=== PATIENT | male | born 1955 | race Caucasian/White ===

== ENCOUNTER 2023-06-08 11:23 | Outpatient (AMB) | payer MEDICARE, SELFPAY ==
--- NOTE | 2023-06-08 11:24 | A.OFFVIS_ITS ---
Intake Vital Signs 06/08/23 11:30 Height 5 ft 11 in Weight 192 lb BMI 26.8 BP 118/71 Blood Pressure Location Rt brachial Position Sitting Pulse 73 Intake Visit Reasons: Cruz temporal region swelling Intake Note: This patient presents for an assessment for bilateral temporal artery swelling. Patient c/o; reports bilateral temporal region swelling, reports ring finger on the left hand turns white and cold, reports debilitating headaches. Integrity Analyst Required: No Accompanied by: Other Relationship Allergies hazelnut Allergy (Severe, Verified 06/08/23 11:32) Unknown latex Allergy (Verified 06/08/23 11:32) Unknown Medication List - Last Reconciled 06/08/23 by José Manuel Willis MD amitriptyline 10 mg PO BEDTIME betamethasone valerate 0.1% 1 appl topical BID bupropion HCl 150 mg PO QAM doxycycline monohydrate 100 mg PO BID famotidine 20 mg PO BID fexofenadine 180 mg PO DAILY fluticasone propionate 50 mcg/actuation sprays intranasal hydroxyzine HCl 10 mg PO TID ibuprofen 800 mg PO TID lithium carbonate 300 mg PO BID lithium carbonate ER 300 mg PO BID oxcarbazepine mg PO prednisone 20 mg PO BID prednisone mg PO sumatriptan succinate 50 mg PO sumatriptan succinate mg subcut triamcinolone acetonide 0.1% 1 appl topical BID-TID triamcinolone acetonide 0.5% 1 appl topical BID HPI Cruz temporal region swelling HPI Details 67-year-old male referred for swelling on both temporal areas. He went to the ER about a week ago because both his temporal areas were swollen . He denied any redness. He says he was given prednisone and the swelling has resolved. He denies any new temporal headaches. He says he has had headaches all his life he has a history of a brain tumor. Currently, he says that he has no swelling on his temporal areas. [facility] Medical History (Updated 06/08/23 @ 11:52 by José Manuel Willis MD) Superficial swelling of scalp Anxiety Review of Systems Const Denies chills and Denies fever(s) Card Denies chest pain, Denies dyspnea and Denies dyspnea on exertion Resp Denies cough, Denies dyspnea and Denies dyspnea on exertion GI Denies hematochezia and Denies change in bowel habits Denies hematuria and Denies difficulty urinating Musc Denies back pain and Denies limited range of motion Neuro Denies focal weakness and Denies convulsions Psych Denies depression and Denies mood swings Physical Exam Vital Signs: Last Vital Signs Pulse 73 06/08/23 11:30 BP 118/71 06/08/23 11:30 BMI result Body Mass Index 26.8 Const General: comfortable and no acute distress Orientation/consciousness: patient oriented x3 HEENT Other: no temporal swelling at this time, no palpable masses, no tenderness, no redness, no skin changes Neck Neck: Yes no lymphadenopathy Resp Auscultation: clear to auscultation bilaterally Cardio Rhythm: regular rhythm GI Palpation (GI): Soft to palpation, nontender and no guarding Neuro General: patient oriented x3 Assessment & Plan Assessment & Plan (1) Superficial swelling of scalp: Code(s): R22.0 - Localized swelling, mass and lump, head Plan: He was referred because of swelling of both scalp areas. This has resolved. I do not see any skin changes or any palpable masses. He was told he may have temporal arteritis. Likely, this does not seem to be the case at this time. He denies any temporal headaches. He has had chronic migraines. I have advised him to have close follow-up with his primary care physician as he has other medical complaints including a rash and joint pains. It does not appear that any temporal artery biopsies is indicated at this time. Coding Level of Care Code New Pt Level 3 (24271) Diagnoses Superficial swelling of scalp R22.0
[2023-06-08 11:30] VITALS: BP 118/71; PULSE 73; BMI 26.8
== END 2023-06-08 11:59 | disposition home or self-care (01) ==
PROVIDERS: PCP Physician Assistant; Referring Provider Physician Assistant; Visit Provider Surgery
DX: R22.0 Localized swelling, mass and lump, head (principal)
CPT/HCPCS: 99203

== ENCOUNTER → 2023-06-08 11:23 | Outpatient (BNVA) | payer MEDICARE, SELFPAY | PROVIDERS: PCP Physician Assistant; Referring Provider Physician Assistant; Visit Provider Surgery | DX: R22.0 Localized swelling, mass and lump, head (principal) | CPT/HCPCS: 99202 ==